=== PATIENT | female | born 2000 | race Two or more races ===

== ENCOUNTER 2024-04-16 13:34 | Emergency (ER) | payer OTHER ==
[~2024-04-16] VITALS: Ht 160 cm; Wt 40.4 kg
[2024-04-16 14:39] LABS: HEMATOCRIT 40.4 % (36.0-45.00); HEMOGLOBIN 13.7 g/dL (12.0-15.00); MEAN CORPUSCULAR HEMOGLOBIN 30.8 pg (27.00-32.0); MEAN CORPUSCULAR HGB CONC 33.9 g/dl (32.0-36.0); PLATELET COUNT 150 K/uL (150-450); RED BLOOD COUNT 4.44 M/uL (4.00-6.00); RED CELL DISTRIBUTION WIDTH 13.1 % (11.5-14.5)
== END 2024-04-16 16:08 | disposition home or self-care (01) ==
LOC: ER 13:35
PROVIDERS: Emergency Medicine
DX: R10.2 Pelvic and perineal pain (principal)

== ENCOUNTER 2024-07-07 06:00 | Day surgery (SDC) | payer OTHER ==
[2024-07-02 13:22] VITALS: BP 107/73
[2024-07-07] MEDS ORDERED: LIDOCAINE HCL 1%/EPINEPHRINE 20ML VIAL IJ ONE ×2 (11:15)
[2024-07-07] MEDS ORDERED: CHLORHEXIDINE GLUCONATE 120 ML BOTTLE TOP ONE (11:15)
[2024-07-07] MEDS ORDERED: CEFAZOLIN SODIUM 1,000 MG VIAL IV ONE (11:15)
[2024-07-07] MEDS ORDERED: GENTAMICIN SULFATE 40 MG/ML VIAL IR ONE (11:15)
[2024-07-07] MEDS ORDERED: MACROBID 100 M100 MG PO (11:23)
[2024-07-07] MEDS ORDERED: MORPHINE SULFATE 4 MG/ML VIAL IV ONE (15:30)
== END 2024-07-07 16:55 | disposition home or self-care (01) ==
LOC: CIR.AMB 06:00
PROVIDERS: ATTEND Obstetrics & Gynecology Gynecology
DX: N36.1 Urethral diverticulum (principal); Z88.7 Allergy status to serum and vaccine